=== PATIENT | male | born 2000 | race African-American/Black ===

== ENCOUNTER 2020-02-12 22:19 | Emergency (ER) | payer OTHER ==
[~2020-02-12] VITALS: Ht 182.9 cm; Wt 64.0 kg
[2020-02-12] MEDS ORDERED: TETANUS-DIPTH-ACEL PERTUSSIS 0.5ML SYR Tdap IM ONE (22:30)
[2020-02-12] MEDS ORDERED: cefTRIAXone 1GM/50ML D5W 50 ML IV ONE (22:30)
[2020-02-12] MEDS ORDERED: SODIUM CHLORIDE 0.9% 1,000 ML IV ONE (22:30)
[2020-02-12 23:08] LABS: Basophils # (auto) 0 10 ^3/uL (0-0.2); Basophils % (auto) 0.2 % (0.0-2.0); Eosinophils # (auto) 0.1 10 ^3/uL (0-0.8); Eosinophils % (auto) 1.6 % (0.0-7.0); Hematocrit 44.4 % (41.0-53.0); Hemoglobin 14.8 g/dL (13.5-17.5); Lymphocytes # (auto) 2.6 10 ^3/uL (0.4-5.4); Lymphocytes % (auto) 33.5 % (10.0-50.0); Mean Corpuscular Hemoglobin 29.4 pg (28.0-32.0); Mean Corpuscular Hgb Conc. 33.3 g/dL (32.0-36.0); Mean Corpuscular Volume 88.4 fL (80.0-100.0); Monocytes # (auto) 0.7 10 ^3/uL (0-1.3); Monocytes % (auto) 9.2 % (0.0-12.0); Neutrophils # (auto) 4.3 10 ^3/uL (1.6-8.6); Neutrophils % (auto) 55.5 % (37.0-80.0); Platelet Count (auto) 220 10^3/uL (140-450); Red Blood Cells 5.02 10^6/uL (4.5-5.90); Red Cell Distribution Width 13.6 % (11.8-14.3); White Blood Cell 7.8 10^3/uL (4.4-10.8)
[2020-02-12 23:21] LABS: INR 1.08 (0.9-1.15); Partial Thromboplastin Time 24.8 sec (23.64-32.05)
[2020-02-12 23:24] LABS: Calcium 8.7 mg/dL (8.5-10.1); Potassium 3.2 mmol/L (3.5-5.1)
[2020-02-12 23:27] LABS: Albumin 4.2 g/dL (3.4-5.0)
[2020-02-12 23:30] LABS: Bilirubin, Total 0.8 mg/dL (0.2-1.0); Total Protein 8.4 g/dL (6.4-8.2)
[2020-02-12] MEDS ORDERED: ALBUTEROL SULF 2.5 MG/0.5ML(0.5%) NEB SOLN ONE (23:59)
[2020-02-13] MEDS ORDERED: ONDANSETRON HCL 4 MG/2 ML VIAL IV ONE (02:45)
[2020-02-13] MEDS ORDERED: MORPHINE SULFATE 4 MG/ML SYR/VIAL IV ONE (02:45)
[2020-02-13 03:35] VITALS: BP 128/70
== END 2020-02-13 03:58 | disposition home or self-care (01) ==
LOC: EEVIPCON 22:19 → ER 22:19
DX: S71.132A Puncture wound without foreign body, left thigh, initial encounter (principal); F17.210 Nicotine dependence, cigarettes, uncomplicated; W34.00XA Accidental discharge from unspecified firearms or gun, initial encounter; Y93.89 Activity, other specified; Y92.89 Other specified places as the place of occurrence of the external cause; Y99.8 Other external cause status
CPT/HCPCS: 36415; 73552; 80053; 85025; 85610; 85730; 90471; 90715; 96365; 96375; 99285; J0696; J2405